=== PATIENT | female | born 2000 | race Caucasian/White ===

== ENCOUNTER 2021-11-25 00:08 | Emergency (ER) | payer MEDICAID ==
[2021-11-25] MEDS ORDERED: Amoxicillin/Clavulanate K 875-125 MG Tab ONE (00:30)
[2021-11-25 01:38] VITALS: BP 126/77; PULSE 74
== END 2021-11-25 00:40 | disposition home or self-care (01) ==
LOC: LB.ED 00:08
DX: S20.111A Abrasion of breast, right breast, initial encounter (principal); W54.8XXA Other contact with dog, initial encounter
CPT/HCPCS: 99281; 99283; A9270-GY